=== PATIENT | female | born 1955 | race Two or more races ===

== ENCOUNTER 2021-04-18 09:23 | Outpatient (CLI) | payer MEDICARE, BC | END 2021-04-18 23:59 | disposition home or self-care (01) | LOC: CFH 09:23 | DX: Z12.2 Encounter for screening for malignant neoplasm of respiratory organs (principal); M85.88 Other specified disorders of bone density and structure, other site; R91.8 Other nonspecific abnormal finding of lung field; J98.4 Other disorders of lung; F17.210 Nicotine dependence, cigarettes, uncomplicated | CPT/HCPCS: 71271; 77080 ==